=== PATIENT | male | born 1970 | race Caucasian/White ===

== ENCOUNTER 2021-04-22 13:30 | Outpatient (REF) | payer OTHER, SELFPAY | END 2021-04-22 13:31 | disposition home or self-care (01) | LOC: HO.LNP 13:30 | PROVIDERS: Visit Provider Physician Assistant Medical | DX: Z20.822 Contact with and (suspected) exposure to COVID-19 (principal) | CPT/HCPCS: U0003; U0005 ==

== ENCOUNTER 2022-01-01 10:18 | Outpatient (REF) | payer OTHER, SELFPAY ==
[2022-01-01 13:41] LABS: Alanine Aminotransferase 22 U/L (0-40); Albumin Level 4.4 g/dL (3.5-5.0); Alkaline Phosphatase 62 U/L (39-117); Anion Gap 11 (12-20); Aspartate Amino Transferase 24 U/L (5-37); Bilirubin Total 0.3 mg/dL (0.0-1.0); Blood Urea Nitrogen 12 mg/dL (9-16); Calcium 9.9 mg/dL (8.4-10.2); Carbon Dioxide 29 mmol/L (22-29); Chloride 106 mmol/L (96-108); Cholesterol 212 mg/dL; Estimated Glomerular Filt Rate > 60; Glucose Fasting 101 mg/dL (60-99); HDL Cholesterol 75 mg/dL; LDL Cholesterol Calculated 123 mg/dl; Potassium 4.7 mmol/L (3.3-5.1); Sodium 141 mmol/L (135-145); Total Protein 7.5 g/dL (6.5-8.0); Triglycerides 70 mg/dL
[2022-01-01 14:03] LABS: Prostate Specific Antigen Scr 1.06 ng/mL (<0.05-4.0); TSH reflex Free T4 0.95 uIU/mL (0.32-4.0)
[2022-01-01 14:44] LABS: Color Urine YELLOW; Glucose Urine UA NEG (NEG); Leukocyte Esterase Urine NEG (NEG); Nitrite Urine NEG (NEG); PH 5.5 (5.0-8.0); Specific Gravity - Urine >= 1.030 (1.005-1.025); Urine Blood NEG (NEG); Urine Ketones NEG (NEG); Urine Protein NEG (NEG-TRACE)
[2022-01-01 14:46] LABS: Appearance Urine CLOUDY
== END 2022-01-01 10:19 | disposition home or self-care (01) ==
LOC: HO.WFDLDS 10:18
PROVIDERS: Visit Provider Family Medicine
DX: Z00.00 Encounter for general adult medical examination without abnormal findings (principal); Z12.5 Encounter for screening for malignant neoplasm of prostate
CPT/HCPCS: 36415; 80053; 80061; 81003; 84153; 84443

== ENCOUNTER 2022-08-13 16:19 | Outpatient (REF) | payer OTHER, SELFPAY ==
[2022-08-14 12:39] LABS: Influenza A PCR NEGATIVE (Negative); Influenza B PCR NEGATIVE (Negative); Resp Syncy Virus RNA Qual PCR NEGATIVE (Negative); SARS COV2 PCR INHOUSE NEGATIVE (Negative)
== END 2022-08-13 16:20 | disposition home or self-care (01) ==
LOC: HO.LAB 16:19
PROVIDERS: Visit Provider Nurse Practitioner Family
DX: Z20.822 Contact with and (suspected) exposure to COVID-19 (principal); R11.0 Nausea
CPT/HCPCS: 0241U

== ENCOUNTER 2023-03-21 12:50 | Emergency (ER) | payer MEDICAID, SELFPAY ==
--- NOTE | ~2023-03-21 | US_ITS ---
EXAMINATION: US ABDOMEN LIMITED CLINICAL INFORMATION: Right upper quadrant pain.. COMPARISON: None available. TECHNIQUE: Real-time imaging of the right upper quadrant abdominal viscera. FINDINGS: PANCREAS: Visualized head and body the pancreas is homogeneous in echotexture. The tail is obscured by overlying gas LIVER: Normal. The liver is normal in size. The liver contour is normal. Parenchymal echogenicity is normal. No focal hepatic lesion. There is no intrahepatic biliary duct dilatation seen. GALLBLADDER: There is mild tenderness in the right upper quadrant by ultrasound probe. The gallbladder is physiologically distended without evidence of stones, sludge, polyps, wall thickening or pericholecystic fluid. COMMON BILE DUCT: Normal in caliber measuring 0.3 cm in diameter. RIGHT KIDNEY: Normal. No hydronephrosis. No renal calculi or focal parenchymal lesions. The kidney measures 11.4 cm in maximum dimension. FREE FLUID: None. The stomach is slightly prominent. US/US abdomen limited IMPRESSION: Mild tenderness in the right upper quadrant by ultrasound probe but unremarkable gallbladder, liver and right kidney.
--- NOTE | 2023-03-21 13:01 | ED_ITS ---
HPI - General Adult General Chief complaint: Abdominal Pain Stated complaint: food poisoning? Time Seen by Provider: 03/21/23 13:30 Source: patient Mode of arrival: ambulatory History of Present Illness HPI narrative: 53-year-old male who arrives with epigastric/right upper quadrant pain that is constant nature and is been ongoing since 03:00 Wednesday morning with multiple oral episodes of nausea and vomiting in this started to have nonbloody diarrhea. He denies any urinary symptoms/shortness of breath/chest pain/palpitations. Patient also denies any fever chills in states that he drinks some alcohol on with eating a turkey sandwich and thinks that this may be food poisoning. Related Data Home Medications Medication Instructions Recorded Confirmed naproxen sodium 220 mg tablet 220 mg PO Q8H PRN 03/12/22 10/22/22 (Flanax (naproxen)) Previous Rx's Medication Instructions Recorded prednisone 50 mg tablet 50 mg PO DAILY #5 tabs 04/30/22 ondansetron HCl 4 mg tablet 4 mg PO Q6-8H PRN nausea and 03/21/23 vomiting #10 tabs Allergies Allergy/AdvReac Type Severity Reaction Status Date / Time ibuprofen Allergy Unknown Extreme Verified 10/22/22 15:01 nausea Vicodin Allergy Unknown Extreme Uncoded 10/22/22 15:01 nausea Review of Systems Review of Systems: Pertinent positives and negatives as stated in HPI [facility] Past Medical History Source: nursing notes reviewed Medical History Sciatic nerve pain Social History Social History Housing: House Alcohol intake: current Patient Tobacco Use Status: Current everyday Tobacco user Smoked in Last 30 Days: Yes e-Cigarette/Vaping Use: Never Used Second Hand Smoke Exposure: No Use of substances other than those prescribed or required for medical reasons: Yes Substance Use Type: Marijuana Advance Directives: Yes Advance Directives on File: No service: No Current occupational status: employed Current occupational exposures/hazards: No Cognitive needs: No Hearing needs: No Vision needs: No Physical Exam ED Vital Signs: Vital Signs - 24 hr 03/21/23 13:09 03/21/23 14:00 Temperature 97.0 F 98.2 F Pulse Rate 70 51 Respiratory Rate 18 16 Blood Pressure 138/99 H 124/85 Pulse Oximetry 98 100 Oxygen Delivery Method Room Air Room Air BMI result Body Mass Index 25.7 VITAL SIGNS: Reviewed. GENERAL: Well developed, well nourished, in no acute distress. HEAD: Normocephalic/atraumatic EYES: PERRLA, EOMI EARS: Ext canals without abnormality NOSE: Nares patent bilateral OROPHARYNX: no oral lesions noted, posterior pharynx clear NECK: Supple, no adenopathy LUNGS: Normal breath sounds. No adventitious sounds or accessory muscle use. SpO2<100> CARDIOVASCULAR: Regular rate and rhythm without noted murmurs ABDOMEN: Soft, exquisite epigastric pain, non-distended with bowel sounds. MUSCULOSKELETAL: No tenderness, deformities, or effusions noted on gross inspection. EXTREMITIES: No cyanosis, clubbing or edema. SKIN: Inspection of the skin reveals no rashes NEUROLOGIC: Alert and oriented x 4. Strength and sensation to light touch were grossly intact x 4. Course Course Course Narrative: This is an RME: Additional HPI, ROS, PE not included below will be deferred to primary provider. Patient is a 53 year old male presenting with abdominal pain, nausea and vomiting since 3am yesterday after eating turkey lunch meat. He reports eating this lunch meat last night. He reports subjective fevers and chills. Rates pain a 9/10. Has been unable to eat or drink secondary to nausea and vomiting since onset of symptoms. PE- benign Plan- labs Medications Administered Discontinued Medications Generic Name Dose Route Start Last Admin Trade Name Freq PRN Reason Stop Dose Admin Al Hydroxide/Mg Hydroxide 30 ml 03/21/23 15:21 03/21/23 15:40 Magnesium Hydrox/Alum Hydrox 30 Ml Oral.Susp PO 03/21/23 15:22 30 ml ONCE ONE Administration Sodium Chloride 1,000 mls @ 999 mls/hr 03/21/23 13:45 03/21/23 14:59 Ns IV 03/21/23 14:45 Infused .Q1H1M BEATA Infusion Ketorolac Tromethamine 15 mg 03/21/23 14:08 03/21/23 14:20 Ketorolac Tromethamine 30 Mg/Ml Vial IVPUSH 03/21/23 14:09 15 mg ONCE ONE Administration Lidocaine HCl 10 ml 03/21/23 15:21 03/21/23 15:40 Lidocaine Hcl Viscous 2 % 15 Ml Solution MUCOUS MEM 03/21/23 15:22 10 ml ONCE ONE Administration Ondansetron HCl 4 mg 03/21/23 13:01 03/21/23 13:28 Ondansetron Odt 4 Mg Tab.Rapdis TRANSLINGU 03/21/23 13:02 4 mg ONCE ONE Administration Sucralfate 1 gm 03/21/23 15:21 03/21/23 15:40 Sucralfate Oral Suspension 1 Gm/10 Ml Oral.Susp PO 03/21/23 15:22 1 gm ONCE ONE Administration Medical Decision Making Medical Decision Making MDM Narrative: 53-year-old male with history and clinical presentation suggestive of possible pancreatitis, gastritis, and certainly a component of dehydration. - labs, UA, Lipase, IVF, Zofran On review of all investigations patient has a stress leukocytosis in suspect a combination poisoning/dehydration. He has been rehydrated, right upper quadrant ultrasound is negative for evidence cholecystitis, no further evidence to suggest pancreatitis. Patient is otherwise discharged home in stable condition instructions to continue with antinausea medications and a bland diet. Differential Diagnosis Please see the discussion above Lab Data Please see the discussion above 03/21/23 13:40 03/21/23 13:40 Labs: Lab Results 03/21/23 03/21/23 03/21/23 Range/Units 13:40 13:40 13:40 WBC 12.8 H (4.8-10.8) X10*3/uL RBC 5.58 (4.60-5.80) X10*6/uL Hgb 16.8 (14.0-18.0) g/dl Hct 50.4 (42.0-52.0) % MCV 90.3 (80.0-98.0) fL MCH 30.1 (27.0-33.0) pg MCHC 33.3 (31.0-36.0) g/dl RDW 12.5 (11.0-16.0) % Plt Count 293 (160-400) X10*3/uL MPV 9.3 L (9.4-12.4) fL Immature Gran % (Auto) 0.3 (0.0-0.4) % Neut % (Auto) 73.5 H (45-73) % Lymph % (Auto) 13.6 L (20-40) % [place]ton % (Auto) 9.2 (2-11) % Eos % (Auto) 3.0 (0-4) % Baso % (Auto) 0.4 (0-2) % Lymph # (Auto) 1.7 (1.2-4.9) X10*3/uL [place]ton # (Auto) 1.2 (0.1-1.2) X10*3/uL Eos # (Auto) 0.4 (0.0-0.4) X10*3/uL Baso # (Auto) 0.1 (0.0-0.2) X10*3/uL Abs Immat Gran (auto) 0.04 H (0.00-0.03) X10*3/uL Absolute Neuts (auto) 9.4 H (2.0-8.3) x10*3/uL Absolute Nucleated RBC 0.000 (0.0-0.012) X10*3/uL Nucleated RBC % (auto) 0.0 (0.0-0.2) /100WBC Sodium 137 (135-145) mmol/L Potassium 4.6 (3.3-5.1) mmol/L Chloride 99 (96-108) mmol/L Carbon Dioxide 30 H (22-29) mmol/L Anion Gap 13 (12-20) BUN 13 (9-16) mg/dL Creatinine 0.88 (0.5-1.4) mg/dL Estim Creat Clear Calc 115.4 Estimated GFR > 60 Random Glucose 104 (60-115) mg/dL Calcium 11.1 H D (8.4-10.2) mg/dL Magnesium 2.2 (1.6-2.6) mg/dL Total Bilirubin 1.0 (0.0-1.0) mg/dL AST 27 (5-37) U/L ALT 28 (0-40) U/L Alkaline Phosphatase 74 (39-117) U/L Total Protein 7.7 (6.5-8.0) g/dL Albumin 4.5 (3.5-5.0) g/dL Lipase 20 (8-78) U/L Urine Color Dark Yellow Urine Appearance Clear Urine pH 5.5 (5.0-9.0) Ur Specific [place] 1.025 (1.005-1.025) Urine Protein Trace (Neg-Trace) mg/dL Urine Glucose (UA) Negative (Negative) mg/dL Urine Ketones 15 (Negative) mg/dL Urine Blood Negative (Negative) Urine Nitrite Negative (Negative) Ur Leukocyte Esterase Negative (Negative) Independent Interpretation I performed an independent interpretation of an: EKG Radiology Impression Radiologist Impression: My interpretation is in agreement with radiology's impression Discharge Plan Discharge Clinical Impression: Food poisoning, Dehydration, Gastritis Patient Disposition: Home, Self-Care Instructions: Gastritis (ED), Dehydration (ED), Diet for Stomach Ulcers and Gastritis (ED), Food Poisoning (ED), Nutrition Tips for Relief of Diarrhea (ED) Additional Instructions: 1. I recommend that you avoid all NSAIDs (naproxen, Motrin, ibuprofen, Aleve, aspirin, Excedrin). 2. Recommend that you take Mylanta, 3 times a day and stick to a bland diet and drink plenty of water over the next 24-48 hours. Return to the ER for any worsening symptoms. Prescriptions: New ondansetron HCl 4 mg tablet 4 mg PO Q6-8H PRN (Reason: nausea and vomiting) Qty: 10 0RF No Action prednisone 50 mg tablet 50 mg PO DAILY Qty: 5 0RF naproxen sodium [Flanax (naproxen)] 220 mg tablet 220 mg PO Q8H PRN Referrals: Nicholas Gann MD [Primary Care Provider] -
[2023-03-21 13:09] VITALS: BP 138/99; PULSE 70; RESP 18; TEMP 36.1; O2SAT 98; BMI 25.7
[2023-03-21] MEDS: Ondansetron ODT 4 MG TAB.RAPDIS TRANSLINGU (13:28)
[2023-03-21] MEDS: 0.9 % Sodium Chloride 1,000 ML 999 ML IV (13:42)
[2023-03-21 13:55] LABS: MANUAL DIFF FLAG NO
[2023-03-21 13:56] LABS: Appearance Urine Clear; Basophils Absolute Auto 0.1 X10*3/uL (0.0-0.2); Basophils Percent Auto 0.4 % (0-2); Color Urine Dark Yellow; Eosinophils Absolute Auto 0.4 X10*3/uL (0.0-0.4); Glucose Urine UA Negative (Negative); Hematocrit 50.4 % (42.0-52.0); Hemoglobin 16.8 g/dl (14.0-18.0); Imm Gran Abs Auto 0.04 X10*3/uL (0.00-0.03); Imm Gran Pct Auto 0.3 % (0.0-0.4); Leukocyte Esterase Urine Negative (Negative); Lymphocytes Absolute Auto 1.7 X10*3/uL (1.2-4.9); Lymphocytes Percent Auto 13.6 % (20-40); Mean Corpuscular HGB Conc 33.3 g/dl (31.0-36.0); Mean Corpuscular Hemoglobin 30.1 pg (27.0-33.0); Mean Corpuscular Volume 90.3 fL (80.0-98.0); Mean Platelet Volume 9.3 fL (9.4-12.4); Monocytes Absolute Auto 1.2 X10*3/uL (0.1-1.2); Monocytes Percent Auto 9.2 % (2-11); Neutrophils Absolute Auto 9.4 x10*3/uL (2.0-8.3); Neutrophils Percent Auto 73.5 % (45-73); Nitrite Urine Negative (Negative); PH 5.5 (5.0-9.0); Platelet Count 293 X10*3/uL (160-400); Red Blood Count 5.58 X10*6/uL (4.60-5.80); Red Cell Distribution Width 12.5 % (11.0-16.0); Specific Gravity - Urine 1.025 (1.005-1.025); Urine Blood Negative (Negative); Urine Ketones 15 mg/dL (Negative); Urine Protein Trace mg/dL (Neg-Trace); White Blood Count 12.8 X10*3/uL (4.8-10.8)
[2023-03-21 14:00] VITALS: BP 124/85; PULSE 51; RESP 16; TEMP 36.8; O2SAT 100
[2023-03-21 14:10] LABS: Alanine Aminotransferase 28 U/L (0-40); Albumin Level 4.5 g/dL (3.5-5.0); Alkaline Phosphatase 74 U/L (39-117); Anion Gap 13 (12-20); Aspartate Amino Transferase 27 U/L (5-37); Blood Urea Nitrogen 13 mg/dL (9-16); Calcium 11.1 mg/dL (8.4-10.2); Carbon Dioxide 30 mmol/L (22-29); Chloride 99 mmol/L (96-108); Creatinine Clr Calc Pharmacy 115.4; Estimated Glomerular Filt Rate > 60; Glucose Random 104 mg/dL (60-115); Magnesium 2.2 mg/dL (1.6-2.6); Potassium 4.6 mmol/L (3.3-5.1); Sodium 137 mmol/L (135-145); Total Protein 7.7 g/dL (6.5-8.0)
[2023-03-21] MEDS: Ketorolac Tromethamine 30 MG/ML VIAL 15 MG IVPUSH (14:20)
[2023-03-21 14:36] LABS: Lipase 20 U/L (8-78)
[2023-03-21] MEDS: Lidocaine HCl Viscous 2 % 15 ML SOLUTION 10 ML MUCOUS MEM (15:40)
[2023-03-21] MEDS: Magnesium Hydrox/Alum Hydrox 30 ML ORAL.SUSP PO (15:40)
[2023-03-21] MEDS: Sucralfate Oral Suspension 1 GM/10 ML ORAL.SUSP PO (15:40)
--- NOTE | 2023-03-21 15:56 | PC.NURSE ---
per pt torodol did not help pain. abd pain hovers around a 7/10 but he has intermittent spasms of pain /10. GI cocktail given per DEC. US done. will ctm
== END 2023-03-21 17:03 | disposition home or self-care (01) ==
PROVIDERS: Physician Assistant; Emergency Provider Student in an Organized Health Care Education/Training Program; PCP Family Medicine
DX: A05.9 Bacterial foodborne intoxication, unspecified (principal); E86.0 Dehydration; K29.70 Gastritis, unspecified, without bleeding; F12.90 Cannabis use, unspecified, uncomplicated; F17.200 Nicotine dependence, unspecified, uncomplicated
CPT/HCPCS: 36415; 76705; 80053; 81003; 83690; 83735; 85025; 96361; 96374; 99284; 99285; J1885

== ENCOUNTER 2024-04-10 11:48 | Outpatient (AMB) | payer BC, SELFPAY ==
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
[2024-04-10 12:05] VITALS: BP 96/70; PULSE 67; RESP 12; TEMP 36.9; O2SAT 97; BMI 27.0
== END 2024-04-10 12:46 | disposition home or self-care (01) ==
PROVIDERS: PCP Family Medicine; Visit Provider Nurse Practitioner Family
DX: M25.562 Pain in left knee (principal); R68.84 Jaw pain
CPT/HCPCS: 99215

== ENCOUNTER 2024-04-27 11:13 | Outpatient (REF) | payer BC, SELFPAY ==
--- NOTE | ~2024-04-27 | XR_ITS ---
EXAMINATION: XR KNEE, LEFT CLINICAL INFORMATION: Left knee pain. COMPARISON: None available. TECHNIQUE: Four views of the left knee. FINDINGS: Mild soft tissue swelling and subcutaneous edema anteriorly. No fracture or malalignment. Joint spaces are normal. No joint effusion. Small bone islands are present in the distal femur and proximal tibia. XR/XR knee LT 4V IMPRESSION: No acute osseous findings or significant degenerative arthritis.
== END 2024-04-27 11:14 | disposition home or self-care (01) ==
LOC: HO.XRAY 11:13
PROVIDERS: PCP Family Medicine; Visit Provider Nurse Practitioner Family
DX: M25.562 Pain in left knee (principal); R68.84 Jaw pain
CPT/HCPCS: 73564

== ENCOUNTER 2024-05-03 14:54 | Outpatient (AMB) | payer BC, SELFPAY ==
--- NOTE | 2024-05-03 14:55 | MHC.OFFWIV ---
Intake Vital Signs 05/03/24 14:56 Height 6 ft Weight 199 lb BMI 27.0 BP 118/80 Blood Pressure Location Rt brachial Position Sitting Pulse 81 Pulse Source Pulse Oximeter Temp 98.3 F Temp Source Oral Pulse Oximetry (%) 98 Oxygen Delivery Method Room Air Intake Visit Reasons: poison cherry Intake Note: pt c/o poison cherry rash Patient Tobacco Use Status: Current everyday Tobacco user Allergies ibuprofen Allergy (Unknown, Verified 05/03/24 14:56) Extreme nausea Vicodin Allergy (Unknown, Uncoded 05/03/24 14:56) Extreme nausea Do you need a note to return to daycare/school/sports/work: No HPI HPI Comments History of Present Illness Details Patient is a 54yo M who presents to office with poison cherry Ongoing x 2 days Works at [employer] and has exposure Has had poison cherry in past Using OTC cream with relief of itching + itchy No pain, 0/10 No sob, CP, throat tightness Denies fever or chills No other complaints PFSH Medical History Sciatic nerve pain Social History Housing: House Alcohol intake: current Patient Tobacco Use Status: Current everyday Tobacco user e-Cigarette/Vaping Use: Never Used Second Hand Smoke Exposure: No Substance Use Type: Marijuana service: No Current occupational status: employed Current occupational exposures/hazards: No Cognitive needs: No Hearing needs: No Vision needs: No Review of Systems Const Denies chills and Denies fever(s) ENT Denies sore throat and Denies throat swelling Card Denies dyspnea Resp Denies cough and Denies dyspnea Skin/Breast Reports pruritus and Reports rash Aller/Immun Denies throat swelling Physical Exam Vital Signs: Last Vital Signs Temp 98.3 F 05/03/24 14:56 Pulse 81 05/03/24 14:56 BP 118/80 05/03/24 14:56 Pulse Ox 98 05/03/24 14:56 Oxygen Delivery Method Room Air 05/03/24 14:56 BMI result Body Mass Index 27.0 General: Non-toxic, NAD. Speaking full sentences. Skin: Warm dry throughout. + linear erythmatous vesicular lesions around bilateral wrists spreading proximally up forearm. No active discharge. + slight crusting Eye: EOMI HENT: Airway patent. Uvula midline. No pharyngeal erythema or edema. No FLOW MATCH SOFA CUTTER. Respiratory: No respiratory distress Cardiac: RRR. No murmur MSK: Full ROM extremities. Neurology: A/O. No aphasia or facial droop. Gait without abnormality Psych: Good mood and affect Assessment & Plan Assessment & Plan (1) Contact dermatitis: Code(s): L25.9 - Unspecified contact dermatitis, unspecified cause Qualifiers: Contact dermatitis type: allergic Contact dermatitis trigger: other trigger Qualified Code(s): L23.89 - Allergic contact dermatitis due to other agents Plan: Patient seen and evaluated. + poison cherry on exam Discussed with pt and he said he does not tolerate prednisone well In past had reaolution with Prednisone 50 x 5 and 40 x 4 days Will give small taper but not traditional 12 day course Patient gave verbal understanding and had no additional questions or concerns at time of discharge All questions answered Medications: New prednisone Take 60mg po qd x 2 days, then 40mg po qd x 3 days, then 20mg po qd x 3 days 20 mg PO DAILY 15 tabs 0RF Coding Level of Care Code Est Pt Level 3 (89976) Diagnoses Allergic contact dermatitis due to other agents L23.89 Contact dermatitis type: allergic Contact dermatitis trigger: other trigger
[2024-05-03 14:56] VITALS: BP 118/80; PULSE 81; TEMP 36.8; O2SAT 98; BMI 27.0
== END 2024-05-03 15:28 | disposition home or self-care (01) ==
PROVIDERS: PCP Family Medicine; Visit Provider Physician Assistant
DX: L23.89 Allergic contact dermatitis due to other agents (principal)
CPT/HCPCS: 99213

== ENCOUNTER 2024-05-12 09:51 | Outpatient (AMB) | payer BC, SELFPAY ==
--- NOTE | 2024-05-12 09:55 | MHC.OFFVIS ---
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 He states that he twisted his knee the wrong way. No hx of previous treatment. Patient reports ongoing pain for about 8-9 months. He mentions that his pain is on the whole knee. Pain is worse when bending and walking. Patient tried and failed 3 + months of at home excises, NSIADs/Tylenol. 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 The patient was seen at the [facility] on 04/10/24 when he stated the pain began about three months prior and had resolved on its own. He states the pain returned on 04/06/24 after he was ambulating on an unstable dock. X-rays of the left knee were obtained. ? ? While in the office today, the patient reports he twisted his left knee the wrong way. He states the pain has been ongoing for eight to nine months. He claims the pain is throughout the entire knee and his pain increases with bending and ambulating. He confirms attempting home exercises and the use of NSAIDs and Tylenol for more than three months with no relief. He denies any prior formal treatments.? [facility] Medical History Sciatic nerve pain Social History (Updated 05/12/24 @ 10:01 by Ashley Padron) Housing: House Alcohol intake: current Patient Tobacco Use Status: Current everyday Tobacco user e-Cigarette/Vaping Use: Never Used Second Hand Smoke Exposure: No Substance Use Type: Marijuana service: No Current occupational status: employed Current occupation: [employer] Current occupational exposures/hazards: No Cognitive needs: No Hearing needs: No Vision needs: No Review of Systems Const All systems reviewed & are unremarkable except as noted in HPI and below Physical Exam Vital Signs: BMI result Body Mass Index 27.0 Const General: cooperative and no acute distress Orientation/consciousness: patient oriented x3 Resp Effort & Inspection: normal respiratory effort and able to speak in complete sentences Cardio Peripheral pulses: Peripheral pulses 2+ throughout Skin General skin exam: no rashes or lesions noted Neuro General: patient oriented x3 Extrem Other: Left knee: Normal to inspection. No ecchymosis, erythema, or joint effusion. No tenderness to palpation along the medial or lateral joint lines. Full knee extension and flexion. Negative Yaakov's. Slight laxity with anterior drawer. NVI.?? Assessment & Plan Assessment & Plan (1) Patellofemoral arthralgia of left knee: Code(s): M25.562 - Pain in left knee Category: Medical (2) Left knee pain: Code(s): M25.562 - Pain in left knee Category: Medical Qualifiers: Chronicity: acute Qualified Code(s): M25.562 - Pain in left knee Plan Mr. Baeza is a 54-year-old male who presents in the office today, as a new patient, for an evaluation of left knee pain. The patient was seen at the [facility] clinic on 04/10/24 when he stated the pain began about three months prior and had resolved on its own. He states the pain returned on 04/06/24 after he was ambulating on an unstable dock. X-rays of the left knee were obtained. ? ? While in the office today, the patient reports he twisted his left knee the wrong way. He states the pain has been ongoing for eight to nine months. He claims the pain is throughout the entire knee and his pain increases with bending and ambulating. He confirms attempting home exercises and the use of NSAIDs and Tylenol for more than three months with no relief. He denies any prior formal treatments.? ? The patient will be referred for an MRI to further evaluate the integrity of the surrounding structures of the left knee. His main complaint is squatting or putting excess pressure on the front of the left knee. We discussed the role of PT and its effect on the approval for the MRI. If the?MRI is denied he nesha have to complete a full course of formal physical therapy. Follow-up will be after the MRI is obtained, or sooner if needed. ? ? X-rays of the left knee which were obtained while in the office today and were reviewed by me, Fabby Ribera PA-C, revealed no acute fractures or dislocation.? ? X-rays of the left knee, obtained on 04/27/24, revealed: No acute osseous findings or significant degenerative arthritis.? Orders: Orders MR knee LT wo con Today M25.562 - Pain in left knee XR knee standing BI Today M25.562 - Pain in left knee Patient Instructions: Scribed by Keri Waldrop medical reimbursement manager, for Fabby Ribera PA-C on 05/12/2024 at 9:55 am, EST.? Coding Level of Care Code New Pt Level 4 (52702) Diagnoses Patellofemoral arthralgia of left knee M25.562 Acute pain of left knee M25.562 Chronicity: acute
[2024-05-12 09:56] VITALS: BMI 27.0
== END 2024-05-12 10:29 | disposition home or self-care (01) ==
PROVIDERS: PCP Family Medicine; Referring Provider Family Medicine; Visit Provider Physician Assistant
DX: M25.562 Pain in left knee (principal)
CPT/HCPCS: 99204

== ENCOUNTER 2024-05-12 10:47 | Outpatient (REF) | payer BC, SELFPAY ==
--- NOTE | ~2024-05-12 | XR_ITS ---
EXAMINATION: XR KNEE AP STANDING CLINICAL INFORMATION: Left knee pain. COMPARISON: None available. TECHNIQUE: AP bilateral standing view of the knees was obtained. FINDINGS: No fracture or joint effusion. Alignment is anatomic. Joint spaces are maintained. No abnormal soft tissue calcification. XR/XR knee standing BI IMPRESSION: Unremarkable examination. Electronically signed by: Priyank Varghese MD 06/20/2024 08:46 AM EDT
== END 2024-05-12 10:48 | disposition home or self-care (01) ==
LOC: HO.HOSX 10:47
PROVIDERS: Visit Provider Physician Assistant
DX: M25.562 Pain in left knee (principal)
CPT/HCPCS: 73565

== ENCOUNTER 2024-06-18 08:20 | Outpatient (REF) | payer BC, SELFPAY ==
--- NOTE | ~2024-06-18 | MR_ITS ---
EXAMINATION: MR KNEE WITHOUT CONTRAST, LEFT CLINICAL INFORMATION: Left knee pain and stiffness. Fall 4-5 months ago. COMPARISON: Left knee radiographs dated 04/27/2024 and 05/12/2024. TECHNIQUE: MRI of the knee without contrast was performed using routine sequences on a high-field scanner. FINDINGS: MENISCI: Medial Meniscus: Heterogeneously increased T2 signal with somewhat linear longitudinal component at the posterior root insertion, which could represent normal variation versus irregular fraying. The medial meniscus is otherwise intact. Lateral Meniscus: Intact. LIGAMENTS: Cruciate: Mildly increased T2 signal throughout the anterior cruciate ligament which could represent a grade 1 sprain versus early mucoid degeneration. No measurable tear. Intact posterior cruciate ligament. Collateral: Minimal edema along the periphery of the medial collateral ligament consistent with a grade 1 sprain/partial tear. Intact fibular collateral ligament. EXTENSOR MECHANISM: Intact quadriceps tendon. Minimal proximal patellar tendinosis. Normal patellofemoral alignment. ARTICULAR CARTILAGE/BONE: Patellofemoral Compartment: Patellar median ridge articular cartilage signal heterogeneity and partial thickness fissuring. Medial Compartment: Intact articular cartilage. Lateral Compartment: Intact articular cartilage. JOINT FLUID AND BURSAE: Small joint effusion and small Hendricks's cyst. MR/MR knee LT wo con IMPRESSION: 1. Heterogeneous increased T2 signal with somewhat linear longitudinal component at the medial meniscus posterior root insertion, which could represent normal variation versus irregular fraying. 2. Possible grade 1 sprain versus early mucoid degeneration of the anterior cruciate ligament. 3. Grade 1 sprain/partial tear of the medial collateral ligament. 4. Minimal patellofemoral arthrosis. Small joint effusion and small Hendricks's cyst. Electronically signed by: Priyank Varghese MD 06/20/2024 09:38 AM EDT
== END 2024-06-18 08:21 | disposition home or self-care (01) ==
LOC: HO.MRI 08:20
PROVIDERS: PCP Family Medicine; Visit Provider Physician Assistant
DX: M25.562 Pain in left knee (principal)
CPT/HCPCS: 73721

== ENCOUNTER 2024-07-14 10:26 | Outpatient (AMB) | payer BC, SELFPAY ==
[2024-07-14 10:27] VITALS: BMI 27.0
--- NOTE | 2024-07-14 10:27 | A.OFFVIS_ITS ---
Vital Signs 07/14/24 10:27 Height 6 ft Weight 199 lb BMI 27.0 Intake Visit Reasons: OV-Left Knee MRI review-Discuss surgery? Intake Note: Justin is a 54 year old male who presents today for an MRI review of his left knee. Patient was last seen with Fabby where he reported that he twisted the knee & has tried and failed OTC NSAIDs, Tylenol and at least 3 months of home exercise program. MR/MR knee LT wo con IMPRESSION: 1. Heterogeneous increased T2 signal with somewhat linear longitudinal component at the medial meniscus posterior root insertion, which could represent normal variation versus irregular fraying. 2. Possible grade 1 sprain versus early mucoid degeneration of the anterior cruciate ligament. 3. Grade 1 sprain/partial tear of the medial collateral ligament. 4. Minimal patellofemoral arthrosis. Small joint effusion and small Hendricks's cys Allergies ibuprofen Allergy (Unknown, Verified 05/12/24 10:02) Extreme nausea Vicodin Allergy (Unknown, Uncoded 05/03/24 14:56) Extreme nausea HPI HPI OV-Left Knee MRI review-Discuss surgery?: Details: Justin is a 54 year old male who presents today for an MRI review of his left knee. Patient was last seen with Fabby where he reported that he twisted the knee & has tried and failed OTC NSAIDs, Tylenol and at least 3 months of home exercise program. Patient states he has stiffness and pain. There is no PT scheduled at this time. He states that he can walk unlimited distances without a problem but when he sits for 10-15 minutes he then has pain when he tries to stand I and his kneecap. He denies locking or mechanical symptoms. He describes the pain as anterior and retropatellar. He has not done physical therapy or had injections. [facility] Medical History Sciatic nerve pain Social History (Updated 05/12/24 @ 10:01 by Ashley Padron) Housing: House Alcohol intake: current Patient Tobacco Use Status: Current everyday Tobacco user e-Cigarette/Vaping Use: Never Used Second Hand Smoke Exposure: No Substance Use Type: Marijuana service: No Current occupational status: employed Current occupation: [employer] Current occupational exposures/hazards: No Cognitive needs: No Hearing needs: No Vision needs: No Physical Exam Vital Signs: BMI result Body Mass Index 27.0 Extrem Other: Full range of motion left knee with mild discomfort on terminal flexion and negative Yaakov's. No joint line tenderness. Trace effusion. No retropatellar tenderness to palpation. Normal tracking. Stable ligamentous exam. Results Reviewed Results Reviewed: I personally reviewed the MR images. MR/MR knee LT wo con IMPRESSION: 1. Heterogeneous increased T2 signal with somewhat linear longitudinal component at the medial meniscus posterior root insertion, which could represent normal variation versus irregular fraying. 2. Possible grade 1 sprain versus early mucoid degeneration of the anterior cruciate ligament. 3. Grade 1 sprain/partial tear of the medial collateral ligament. 4. Minimal patellofemoral arthrosis. Small joint effusion and small Hendricks's cys Assessment & Plan Assessment & Plan (1) Patellofemoral arthralgia of left knee: Code(s): M25.562 - Pain in left knee Category: Medical Plan: This is a 4-year-old gentleman who sustained a twisting injury approximately 9 months ago. His MRI is unimpressive. His symptoms are consistent with patellofemoral pain and he would like to try physical therapy. I do not, at this time, think surgery would help him. Is ambulatory capacity is full. Orders: Orders PT Evaluation and Treatment Today M25.562 - Pain in left knee Coding Level of Care Code Est Pt Level 3 (10045) Diagnoses Patellofemoral arthralgia of left knee M25.562
== END 2024-07-14 10:52 | disposition home or self-care (01) ==
PROVIDERS: PCP Family Medicine; Visit Provider Orthopaedic Surgery
DX: M25.562 Pain in left knee (principal)
CPT/HCPCS: 99213

== ENCOUNTER → 2024-07-14 10:26 | Outpatient (BNVA) | payer BC, SELFPAY | PROVIDERS: PCP Family Medicine; Visit Provider Orthopaedic Surgery ==

== ENCOUNTER 2024-08-23 08:07 | Outpatient (RCR) | payer BC, SELFPAY ==
--- NOTE | 2024-08-02 10:01 | MHC.PT.EP ---
[facility] [place] Office [place] Office [place] Office [address] [phone] F: [phone] F: [phone] F: [phone] F: [phone] Physical Therapy Plan of Care Date of Evaluation: 08/02/24 Date of Surgery: Diagnosis: Pain in L knee Assessment: 54 y/o male referred to PT with L knee pain. He slipped and fell landing on L knee 5 months ago resulting in pain and difficulty with squatting, stairs, and first few steps of walking after prolonged sitting. Examination shows normal ROM, pain with squatting, decreased L hip/knee strength, mild L patella hypomobility and pain. REcommend PT 2x/week for 5 weeks to address impairments, implement HEP, and optimize functional mobility. Frequency and Duration: The patient will be seen 2x/week for 5 weeks Short Term Goals: I with HEP Aviation Safety Equipment Technician Goals: 5 weeks I with HEP and self management of sx Pt will be able to squat to sweet pickled fruit maker object from floor with pain < 3/10 Improve LEFS to 49/80 *IR (39/80) Treatment Plan: Modalities to reduce pain, spasms and effusion. Manual therapy to restore motion and function. Therapeutic exercise to improve strength and flexibility. Neuromuscular re-education for posture and balance. Therapeutic activities to return to functional activities of daily living. Electronically signed by: Lacey Hazel PT Please sign and return to therapist. Thank you for your referral.
--- NOTE | 2024-09-21 08:57 | MHC.PT.DC ---
[facility] [place] Office [place] Office [place] Office [address] [phone] F: [phone] F: [phone] F: [phone] F: [phone] Physical Therapy Discharge Report Diagnosis: Pain in L knee Date of Surgery: Date of Evaluation: 08/02/24 Date of Discharge: 09/21/24 Treatments to Date: 4 Cancellations to Date: 3 No Shows to Date: 0 Discharge Status: Independent with HEP Recommend MD Follow-up Discharge Summary: Pt did not f/u final visits, however I with HEP at time of last visit. Pt also with some jerky motion during mat exercises and pt states his legs have been like that for 8-9 years now, unsure why. Recommended he look into f/u with his MD regarding his report of poor balance and tremulous motion that is observed, he will consider. Electronically signed by: Lacey Hazel PT Please sign and return to therapist. Thank you for your referral.
== END 2024-09-21 08:58 | disposition home or self-care (01) ==
LOC: HO.PT 08:07
PROVIDERS: PCP Family Medicine; Visit Provider Family Medicine
DX: M25.562 Pain in left knee (principal)
CPT/HCPCS: 97110; 97161

== ENCOUNTER 2025-07-05 11:17 | Outpatient (AMB) | payer OTHER, SELFPAY ==
--- OUTSIDE RECORDS SUMMARY | 2022-10-09 16:55 | XMS_ITS | Encounter Summary ---
Author Organization [facility] Address [address] [place] [phone] Phone Care Team Providers Care Assistant Gm Of Content & Delivery Name Role Phone Nicholas Gann MD Primary Care Provider Encounter Details Date Type Department Care Team (Late st Contact Info) Description 10/09/2022 3:55 PM EST Hospital Encounter [facility] [address] [place] [phone] Zandra Bruno FNP [address] [place] [phone] [email or web address] Social History Tobacco Use Types Packs/Day Years Used Date Smoking Tobacco: Every Day Cigarettes Smokeless Tobacco: Never Education Answer Date Recorded Are you interested in more education? Not on delvin e 01/30/2023 Are you concerned about learning? Not on file 01/30/2023 No 01/30/2023 No 01/30/2023 Digital Access Answer Date Recorded No 03/02/2023 No 03/02/2023 Reliable internet access at home? Not on file 03/02/2023 Device with a working camera? Not on file Sex and Gender Information Value Date Recorded Sex Assigned at Not on file Legal Sex Male 3:22 PM EST Gender Identity Not on file Sexual Orientation Not on file documented as of this encounter Plan of Treatment Not on file documented as of this encounter Procedures Procedure Name Priority Date/Time Associated Diagnosis Comments XR LUMBOSACRAL SPINE 4 OR MORE VIEWS Urgent/patient waiting 10/09/2022 4:01 PM EST Fall, initial encounter documented in this encounter Results * XR LUMBOSACRAL SPINE 4 OR MORE VIEWS (10/09/2022 4:01 PM EST) Anatomical Region Laterality Modality L-spine Computed Radiogr aphy 10/09/2022 4:29 PM EST Impressions 10/09/2022 4:29 PM EST No displaced fracture. Narrative 10/09/2022 4:29 PM EST XR LUMBOSACRAL SPINE 4 OR MORE VIEWS COMPARISON: None. FINDINGS: 5 nonrib-bearing lumbar-type vertebral bodies. Preserved alignment. Small anterior osteophytes at multiple levels. Mild disc space narrowing at L1-L2 and L4-L5. Intact sacroiliac joints. Surgical clips in the right upper quadrant. Procedure Note Jasmin Salamanca MD - 10/09/2022 XR LUMBOSACRAL SPINE 4 OR MORE VIEWS COMPARISON: None. FINDINGS: 5 nonrib-bearing lumbar-type vertebral bodies. Preserved alignment. Smallanterior osteophytes at multiple levels. Mild disc space narrowing atL1-L2 and L4-L5. Intact sacroiliac joints. Surgical clips in the rightupper quadrant. IMPRESSION: No displaced fracture. Zandra Bruno TOOTH CUTTER SPUR IMG XR SPINE Final Resul t documented in this encounter Visit Diagnoses Not on filedocumented in this encounter Care Teams Assistant Gm Of Content & Delivery Relationship Specialty Start Date End Date Nicholas Gann MD [address] [place] [address] PCP - General Family Medicine 10/09/22 documented as of this encounter Additional Source Comments The information contained in this document represents components of the legal health record. It is not the complete legal health record.[facility]
[2025-07-05 11:19] VITALS: BP 100/72; PULSE 62; TEMP 36.6; O2SAT 97; BMI 26.7
--- NOTE | 2025-07-05 11:19 | MHC.OFFWIV ---
Intake Vital Signs 07/05/25 11:19 Height 6 ft Weight 197 lb BMI 26.7 BP 100/72 Blood Pressure Location Rt brachial Position Sitting Pulse 62 Pulse Source Pulse Oximeter Temp 97.9 F Temp Source Oral Pulse Oximetry (%) 97 Oxygen Delivery Method Room Air Intake Visit Reasons: EP Poison Janet Patient Tobacco Use Status: Current everyday Tobacco user Allergies ibuprofen Allergy (Unknown, Verified 07/05/25 11:23) Extreme nausea acetaminophen (From Vicodin) Adverse Reaction (Mild, Verified 07/05/25 11:23) nausea hydrocodone (From Vicodin) Adverse Reaction (Mild, Verified 07/05/25 11:23) nausea Do you need a note to return to daycare/school/sports/work: Yes HPI HPI Comments History of Present Illness Details History - The patient is a 55-year-old male presenting with a rash on his arms and hands. - Symptoms began after yard work on Wednesday, despite preventive measures with Dove soap. - Rash is itchy and burning, located between fingers, back of neck, and leg. - History of similar reactions to poison janet in the past and had prednisone to help with his symptoms. - He tried some OTC treatments that did not help. - He denies joint pain, fever, chills, SOB, or wheezing. Physical Exam General: Cooperative, healthy appearing, comfortable, no acute distress and well developed Orientation: Patient oriented x3 Limitations: No limitations Mouth: normal, moist oral mucosa Neck: Normal visual inspection and Yes full ROM Respiratory: Normal respiratory effort and able to speak in complete sentences. Clear to auscultation bilaterally. No w/r/r noted. Cardiovascular: RRR, no m/r/g noted. Normal S1 and S2 Skin: Erythematous raised, blanchable, non-tender patches noted in the antecubital fossas, forearms, and hands. No burrows noted. No discharge noted. No streaking noted. Patient was informed and verbally consented to the use of an ambient scribe for clinic note documentation during this visit [facility] Medical History Sciatic nerve pain Social History (Updated 05/12/24 @ 10:01 by Ashley Padron) Housing: House Alcohol intake: current Patient Tobacco Use Status: Current everyday Tobacco user e-Cigarette/Vaping Use: Never Used Second Hand Smoke Exposure: No Substance Use Type: Marijuana service: No Current occupational status: employed Current occupation: [employer] Current occupational exposures/hazards: No Cognitive needs: No Hearing needs: No Vision needs: No Review of Systems Const All systems reviewed & are unremarkable except as noted in HPI and below Physical Exam Vital Signs: Last Vital Signs Temp 97.9 F 07/05/25 11:19 Pulse 62 07/05/25 11:19 BP 100/72 07/05/25 11:19 Pulse Ox 97 07/05/25 11:19 Oxygen Delivery Method Room Air 07/05/25 11:19 BMI result Body Mass Index 26.7 Assessment & Plan Assessment & Plan (1) Rash: Code(s): R21 - Rash and other nonspecific skin eruption Plan Most likely poison janet vs poison sumac or contact dermatitis of another plant Plan - Prescribe prednisone 40 mg daily for five days to manage inflammation and symptoms. - Recommend hydrocortisone cream to apply topically to affected areas to reduce rash and itching. - Advise the use of antihistamines such as Benadryl or Zyrtec to alleviate itching. Medications: New hydrocortisone 2.5% 1 appl topical BID PRN 30 grams 0RF Skin Irritation prednisone 40 mg (2 x 20 mg) PO DAILY 10 tabs 0RF 5 days Coding Level of Care Code Est Pt Level 3 (95915) Diagnoses Rash R21
--- OUTSIDE RECORDS SUMMARY | 2025-07-05 13:11 | XMS_ITS | Clinical Summary ---
Author Organization [facility] Address [address] [place] [address] Care Team Providers Care Tariff Counsel Name Role Phone Bhavik Garcia MD Primary Care Provider [phone] Immunizations Immunization Administration Dates Next Due Influenza Inactivated/Split Preservative Free IM 08/04/2022 Social History Tobacco Use Types Packs/Day Years Used Date Smoking Tobacco: Never Assessed Sex and Gender Information Value Date Recorded Sex Assigned at Not on file Legal Sex Male 2:42 PM EDT Gender Identity Not on file Sexual Orientation Not on file Plan of Treatment Health Maintenance Due Date Last Done Comments Hepatitis C Virus Screening 1970 HIV Screening 01/19/1985 DTaP/Tdap/Td Vaccines (1 - Tdap) 01/19/1991 Hepatitis B Vaccines (1 of 3 - 19+ 3-dose series) 01/19/1991 Colonoscopy 01/19/2017 Pneumococcal Vaccines 50+ (1 of 1 - PCV) 01/19/2022 Zoster (Shingles) Vaccine (1 of 2) 01/19/2022 Influenza Vaccine 05/04/2025 08/04/2022 COVID-19 Vaccine (3 - 2024- season) 06/04/202512/2021, 11/05/2021 Insurance [employer] PPO Care Teams Tariff Counsel Relationship Specialty Start Date End Date Bhavik Garcia MD [address] [place] [address] PCP - General Palliative Care 08/04/22
--- OUTSIDE RECORDS SUMMARY | 2025-07-05 13:11 | XMS_ITS | Clinical Summary ---
Author Organization [address] Address [address] [place] [phone] Phone Care Team Providers Care Tooling Engineering Tech Name Role Phone Nicholas Gann MD Primary Care Provider Allergies Active Allergy Reactions Criticality Noted Date Comments Ibuprofen Dizziness 10/20/2024 Hydrocodone-Acetaminophen Dizziness 10/20/2024 Medications methocarbamoL (ROBAXIN) 750 mg tablet Take 1 tablet (750 mg total) by mouth 4 (four) times a day for 10 days. 40 each 10/20/2024 Active Social History Tobacco Use Types Packs/Day Years Used Date Smoking Tobacco: Never Assessed Sex and Gender Information Value Date Recorded Sex Assigned at Male 10/20/2024 3:34 PM EST Legal Sex Male 7:20 AM EST Gender Identity Male 10/20/2024 3:34 PM EST Sexual Orientation Not on file Last Filed Vital Signs Vital Sign Reading Time Taken Comments Blood Pressure 116/82 10/20/2024 2:59 PM EST Pulse 82 10/20/2024 2:59 PM EST Temperature 36.9 C (98.4 F) 10/20/2024 2:59 PM EST Respiratory Rate 18 10/20/2024 2:59 PM EST Oxygen Saturation 98% 10/20/2024 2:59 PM EST Inhaled Oxygen Concentration - - Weight - - Height - - Body Mass Index - - Plan of Treatment Health Maintenance Due Date Last Done Comments Hepatitis B Vaccines (1 of 3 - 19+ 3-dose series) 01/19/1991 Pneumococcal Vaccine: 50+ Years (1 of 1 - PCV) 01/19/2022 Zoster Vaccines (1 of 2) 01/19/2022 Cholesterol Screening (Lipid Panel) 08/23/2024 Colorectal Cancer Screening: Colonoscopy 08/23/2024 HIV Screening 08/23/2024 Hepatitis C Screening 08/23/2024 Social Influencers of Health Screening 08/23/2024 Depression Screening 10/04/2024 COVID-19 Vaccine (3 - 2024-2 6 season) 2025 04/13/2021, 02/17/2021 Influenza Vaccine (#1) 2025 09/01/2021 DTaP,Tdap,and Td Vaccines (2 - Td or Tdap) 03/23/2033 03/23/2023 HIB Vaccines Aged Out No longer eligi ble based on patient's age to complete this topic HPV Vaccines Aged Out No longer eligi ble based on patient's age to complete this topic Hepatitis A Vaccines Aged Out No long er eligible based on patient's age to complete this topic IPV Vaccines Aged Out No longer eligi ble based on patient's age to complete this topic MMR Vaccines Aged Out No longer eligi ble based on patient's age to complete this topic Meningococcal ACWY Vaccine Aged Out N o longer eligible based on patient's age to complete this topic Meningococcal B Vaccine Aged Out No l onger eligible based on patient's age to complete this topic RSV Immunization Patients Under 20 months Aged Out No longer eligible b ased on patient's age to complete this topic Varicella Vaccines Aged Out No longer eligible based on patient's age to complete this topic Insurance [facility] [employer] Care Teams Tooling Engineering Tech Relationship Specialty Start Date End Date Nicholas Gann MD [address] [place] [address] Dr Dominick MA PCP - General Family Medicine 10/20/24
--- OUTSIDE RECORDS SUMMARY | 2025-07-05 13:11 | XMS_ITS | Encounter Summary ---
Author Organization [facility] Address [address] [place] [address] Care Team Providers Care Fleet Administrative Assistant Name Role Phone Nicholas Gann MD Primary Care Provider Encounter Details Date Type Department Care Team (Late st Contact Info) Description 08/23/2024 Lab Requisition [facility] - Main Lab [address] [place] [address] Gómez Pires DMD [address] [place] [address] Benign neoplasm of tongue Social History Tobacco Use Types Packs/Day Years Used Date Smoking Tobacco: Never Assessed Sex and Gender Information Value Date Recorded Sex Assigned at Male 10/20/2024 3:34 PM EST Legal Sex Male 7:20 AM EST Gender Identity Male 10/20/2024 3:34 PM EST Sexual Orientation Not on file documented as of this encounter Plan of Treatment Not on file documented as of this encounter Procedures Procedure Name Priority Date/Time Associated Diagnosis Comments TISSUE EXAM Routine 08/22/2024 Benign neoplasm of tongue documented in this encounter Results * Tissue Exam (08/22/2024) Final Diagnosis Mass, tongue, excision: 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 Squamous mucosa with mild reactive changes. 08/24/2024 5:11 PM EST [facility] ([facility] Comment Healthcare Account Manager slide(s) from this case have been presented at Anatomic Pathology Intradepartmental Review Conference on 08/24/24. 08/24/2024 5:11 PM EST [facility] Clinical Information 1.5 cm mass tip of tongue, firm nodule. 08/24/2024 5:11 PM [facility] Gross Description A. Tongue, tip: Labeled with the patient's name and information . Received in formalin is a rubbery, white, 1.4 cm polypoid portion of epithelium which is inked blue at the base and quadrisected. The cut surfaces are diffusely fibrotic. The specimen is submitted in entirety in one cassette, four pieces. TS 08/24/2024 5:11 PM [facility] Disclaimer Unless otherwise specified, all tissue is 10% NB formalin fixed and paraffin embedded. 08/24/2024 5:11 PM [facility] Tissue Tongue structure / Unknown 08/22/2024 08/23/2024 7:27 AM EST us Gómez Pires DMD LAB PATHOLOGY ORDERABLES Inez l Result [facility] [address] [place] [address], documented in this encounter Visit Diagnoses Diagnosis Benign neoplasm of tongue documented in this encounter Care Teams Fleet Administrative Assistant Relationship Specialty Start Date End Date Nicholas Gann MD [address] [place] [address] Dr Dominick [place] PCP - General Family Medicine 10/20/24 documented as of this encounter
--- OUTSIDE RECORDS SUMMARY | 2025-07-05 13:11 | XMS_ITS | Clinical Summary ---
Author Organization [facility] Address [address] [address] Phone Care Team Providers Care Plumbing Hardware Assembler Name Role Phone Nicholas Gann MD Primary Care Provider Allergies Active Allergy Reactions Criticality Noted Date Comments Prednisolone 10/09/2022 Hydrocodone-Acetaminophen 10/09/2022 Medications naproxen (NAPROSYN) 500 MG tablet Take 1 tablet (500 mg total) by mouth 2 (two) times a day for 3 days. Then twice daily as needed for pain, inflammation 20 tablet 3 Active methocarbamoL (ROBAXIN) 500 MG tablet Take 1 tablet (500 mg total) by mouth 3 (three) times a day as needed. 12 tablet 3 Active Active Problems No known active problems Social History Tobacco Use Types Packs/Day Years Used Date Smoking Tobacco: Every Day Cigarettes Smokeless Tobacco: Never Tobacco Cessation:Ready to Q uit: Not Asked; Counseling Given: Not Answered Education Answer Date Recorded Are you interested [...] on file Sexual Orientation Not on file Last Filed Vital Signs Vital Sign Reading Time Taken Comments Blood Pressure 127/89 10/22/2022 11:02 AM EST Pulse 78 10/22/2022 11:02 AM EST Temperature 36.7 C (98.1 F) 10/22/2022 11:02 AM EST Respiratory Rate 18 10/22/2022 11:02 AM EST Oxygen Saturation 98% 10/22/2022 11:02 AM EST Inhaled Oxygen Concentration - - Weight 81.6 kg (180 lb) 10/16/2022 8:22 AM EST Height 182.9 cm (6') 10/16/2022 8:22 AM EST Body Mass Index 24.41 10/16/2022 8:22 AM EST Plan of Treatment Health Maintenance Due Date Last Done Comments Adult Td,Tdap Booster 1972 LIPID PANEL 1972 DEPRESSION SCREENING 1984 SMOKING Hx and SMOKELESS TOB ACCO SCREENING 01/19/1985 HEPATITIS C SCREENING 01/19/1990 HIV ONE-TIME SCREENING (18-6 5 YEARS) 01/19/1990 PNEUMOCOCCAL VACCINES (50+ y ears) (1 of 2 - PCV) 01/19/1991 COLOGUARD 01/19/2017 COLONOSCOPY 01/19/2017 COLORECTAL CANCER SCREENING 01/19/2017 FIT TEST 01/19/2017 FOBT 01/19/2017 SIGMOIDOSCOPY 01/19/2017 VIRTUAL COLONOSCOPY 01/19/2017 ZOSTER VACCINES (1 of 2) 01/19/2022 INFLUENZA VACCINE (#1) 2025 08/04/2022 COVID-19 VACCINE (1 - 2023-2 5 season) 2025 HEPATITIS A VACCINES Aged Out No long er eligible based on patient's age to complete this topic HIB VACCINES Aged Out No longer eligi ble based on patient's age to complete this topic MENINGOCOCCAL VACCINES (ACWY) Aged Out No longer eligible based on patient's age to complete this topic MENINGOCOCCAL VACCINES (B) Aged Out N o longer eligible based on patient's age to complete this topic Medical Devices Not on file Insurance [employer] PPO [facility] [place] PPO [facility] PPO [facility] Care Teams Plumbing Hardware Assembler Relationship Specialty Start Date End Date Nicholas Gann MD [address] [place] [address] PCP - General Family Medicine 10/09/22 Additional Source Comments The information contained in this document represents components of the legal health record. It is not the complete legal health record.[facility]
== END 2025-07-05 11:53 | disposition home or self-care (01) ==
PROVIDERS: PCP Family Medicine; Visit Provider Physician Assistant Medical
DX: R21 Rash and other nonspecific skin eruption (principal)

== ENCOUNTER 2025-07-27 13:55 | Outpatient (AMB) | payer OTHER, SELFPAY ==
--- OUTSIDE RECORDS SUMMARY | 2022-10-09 16:55 | XMS_ITS | Encounter Summary ---
Author Organization [facility] Address [address] [place] [phone] Phone Care Team Providers Care Gutter Hanger Name Role Phone Nicholas Gann MD Primary Care Provider Encounter Details Date Type Department Care Team (Late st Contact Info) Description 10/09/2022 3:55 PM EST Hospital Encounter [facility] [address] [place] [phone] Zandra Bruno FNP [address] [place] [phone] [email or web address] Social History Tobacco Use Types Packs/Day Years [...] the rightupper quadrant. IMPRESSION: No displaced fracture. aZndra Bruno MACHINE JOINT CUTTER IMG XR SPINE Final Resul t documented in this encounter Visit Diagnoses Not on filedocumented in this encounter Care Teams Gutter Hanger Relationship Specialty Start Date End Date Nicholas Gann MD [address] [place] [address] PCP - General Family Medicine 10/09/22 documented as of this encounter Additional Source Comments The information contained in this document represents components of the legal health record. It is not the complete legal health record.[facility]
[2025-07-27 13:55] VITALS: BP 126/80; PULSE 76; TEMP 36.6; O2SAT 98; BMI 26.9
--- NOTE | 2025-07-27 13:55 | AM.OFFWIN_ITS ---
Intake Vital Signs 07/27/25 13:55 Height 6 ft Weight 198 lb BMI 26.9 BP 126/80 Blood Pressure Location Lt brachial Position Sitting Pulse 76 Pulse Source Pulse Oximeter Temp 97.8 F Temp Source Oral Pulse Oximetry (%) 98 Oxygen Delivery Method Room Air Intake Visit Reasons: EP Back pain Intake Note: EP complains of a chronic back pain for 20 years. Since today morning the pain radiated to his right leg and restricted his walking. As per the patient it is seasonal. No fall history was provided. Patient Tobacco Use Status: Current everyday Tobacco user Allergies ibuprofen Allergy (Unknown, Verified 07/27/25 14:05) Extreme nausea acetaminophen (From Vicodin) Adverse Reaction (Mild, Verified 07/27/25 14:05) nausea hydrocodone (From Vicodin) Adverse Reaction (Mild, Verified 07/27/25 14:05) nausea Medication List - Last Reconciled 07/27/25 by Mayte León MD No Known Home Meds Do you need a note to return to daycare/school/sports/work: Yes HPI HPI Comments History of Present Illness Details Patient was informed and verbally consented to the use of an ambient scribe for clinic note documentation during the visit. History of Present Illness The patient is a 55-year-old male presenting with exacerbated low back pain radiating down the right leg. Chronic Low Back Pain: - The patient has experienced ongoing ba ck problems for an extended period, with initial onset dating back to when he was 27 years old. - Pain episodes typically recur every 8 to 10 months, often exacerbated by seasonal changes. - Today?s episode reported as back pain but also a twitching sensation in the right buttock. - The pain radiates down into the right foot - Walking is notably painful. - Denies saddle anesthesia or urinary/st ool dysfunction Review of Systems - Musculoskeletal: Reports chronic low b ack pain, report of twitching in the right buttock. - Neurological: Reports shooting pain an d numbness down right leg. No saddle anesthesia - Genitourinary: Denies any bowel or uri nary dysfunction - General: Denies fevers or chills Physical Exam General Appearance: Normal appearance, well developed. No acute distress Head: Normocephalic, atraumatic Pulmonary: No respiratory distress. Speaking in full sentences Musculoskeletal: No TTP over spine, +TTP overlying right SI joint, neg straight leg test, symmetric 5/5 strength for LE, sensation intact, normal gait Mental Status: Alert and Oriented x 3 Psychiatric: Normal mood. Normal affect. [facility] Medical History Sciatic nerve pain Social History (Updated 05/12/24 @ 10:01 by Ashley Padron) Housing: House Alcohol intake: current Patient Tobacco Use Status: Current everyday Tobacco user e-Cigarette/Vaping Use: Never Used Second Hand Smoke Exposure: No Substance Use Type: Marijuana service: No Current occupational status: employed Current occupation: [employer] Current occupational exposures/hazards: No Cognitive needs: No Hearing needs: No Vision needs: No Physical Exam Vital Signs: Last Vital Signs Temp 97.8 F 07/27/25 13:55 Pulse 76 07/27/25 13:55 BP 126/80 07/27/25 13:55 Pulse Ox 98 07/27/25 13:55 Oxygen Delivery Method Room Air 07/27/25 13:55 BMI result Body Mass Index 26.9 Assessment & Plan Assessment & Plan (1) Right-sided low back pain with right-sided sciatica: Code(s): M54.41 - Lumbago with sciatica, right side Qualifiers: Chronicity: acute Qualified Code(s): M54.41 - Lumbago with sciatica, right side Plan - Chronic low back pain has been persistent for years with episodic exacerbations. - Current symptoms appear consistent with sciatica - Advised naproxen every 12 hours with food - Recommended Flexeril at bedtime as needed and advised no operating any mot orized vehicles due to potential drowsiness - Heat on and off Medications: New cyclobenzaprine 10 mg PO BEDTIME PRN 10 tabs 0RF muscle spasm Coding Level of Care Code Est Pt Level 3 (96997) Diagnoses Acute right-sided low back pain with right-sided sciatica M54.41 Chronicity: acute
--- OUTSIDE RECORDS SUMMARY | 2025-07-27 15:55 | XMS_ITS | Clinical Summary ---
Author Organization [address] Address [address] [place] [phone] Phone Care Team Providers Care Cardiopulmonary Technologist Name Role Phone Nicholas Gann MD Primary Care Provider [phone] Allergies Active Allergy Reactions Criticality Noted Date [...] Health Maintenance Due Date Last Done Comments Colorectal Cancer Screening: Colonoscopy 1972 Hepatitis B Vaccines (1 of 3 - 19+ 3-dose series) 01/19/1991 Pneumococcal Vaccine: 50+ Years (1 of 1 - PCV) 01/19/2022 Zoster Vaccines (1 of 2) 01/19/2022 Cholesterol Screening (Lipid Panel) 08/23/2024 HIV Screening 08/23/2024 Hepatitis C Screening 08/23/2024 Social Influencers of Health Screening 08/23/2024 Depression Screening 10/04/2024 COVID-19 Vaccine (3 - 2024-2 6 season) 2025 04/13/2021, 02/17/2021 Influenza Vaccine (#1) 2025 09/01/2021 DTaP,Tdap,and Td Vaccines (2 - Td or Tdap) 03/23/2033 03/23/2023 RSV Immunization Adult Patients (1 - 1-dose 75+ series) 01/19/2047 HIB Vaccines Aged Out No longer eligi [...] patient's age to complete this topic Insurance [facility] [employer] GENER[employer] Care Teams Cardiopulmonary Technologist Relationship Specialty Start Date End Date Nicholas Gann MD [address] [place] [address] Dr Dominick [place] PCP - General Family Medicine 10/20/24
--- OUTSIDE RECORDS SUMMARY | 2025-07-27 15:55 | XMS_ITS | Clinical Summary ---
Author Organization [facility] Address [address] [address] Phone Care Team Providers Care Guest Services Assistant Name Role Phone Nicholas Gann MD [...] (#1) 2025 08/04/2022 COVID-19 VACCINE (1 - 2024-2 6 season) 2025 RSV VACCINE (1 - 1-dose 75+ series) 01/19/2047 HEPATITIS A VACCINES Aged Out No long [...] topic Medical Devices Not on file Insurance Event [employer] [facility] [place] [employer] [place] [employer] PPO UMR [facility] INS[facility] Care Teams Guest Services Assistant Relationship Specialty Start Date End Date Nicholas Gann MD [address] [place] [address] PCP - General Family Medicine 10/09/22 Additional Source Comments The information contained in this document represents components of the legal health record. It is not the complete legal health record.[facility]
--- OUTSIDE RECORDS SUMMARY | 2025-07-27 15:55 | XMS_ITS | Encounter Summary ---
Author Organization [facility] Address [address] [place] [address] Care Team Providers Care Control Systems Eng Name Role Phone Nicholas Gann MD Primary Care Provider Encounter Details Date Type Department Care Team (Late st Contact Info) Description 08/23/2024 Lab Requisition [facility] - Main Lab [address] [place] [address] Gómez Pires DMD [address] [place] [address] Benign neoplasm of tongue Social History Tobacco [...] mild reactive changes. 08/24/2024 5:11 PM EST [facility] Comment Color Paste Mixing Supervisor slide(s) from this case have been presented at Anatomic Pathology Intradepartmental Review Conference on 08/24/24. 08/24/2024 5:11 PM EST [facility] Clinical Information 1.5 cm mass tip of tongue, firm nodule. 08/24/2024 5:11 PM [facility] Gross Description A. Tongue, tip: Labeled with the patient's name and information . Received in formalin is a rubbery, white, 1.4 cm polypoid portion of epithelium which is inked blue at the base and quadrisected. The cut surfaces are diffusely fibrotic. The specimen is submitted in entirety in one cassette, four pieces. TS 08/24/2024 5:11 PM [facility] Disclaimer Unless otherwise specified, all tissue is 10% NB formalin fixed and paraffin embedded. 08/24/2024 5:11 PM [facility] Tissue Tongue structure / Unknown 08/22/2024 08/23/2024 7:27 AM EST us Gómez Pires DMD LAB PATHOLOGY ORDERABLES Inez l Result [facility] [address] [place] [address], documented in this encounter Visit Diagnoses Diagnosis Benign neoplasm of tongue documented in this encounter Care Teams Control Systems Eng Relationship Specialty Start Date End Date Nicholas Gann MD [address] [place] [address] Dr Dominick [place] PCP - General Family Medicine 10/20/24 documented as of this encounter
--- OUTSIDE RECORDS SUMMARY | 2025-07-27 15:55 | XMS_ITS | Clinical Summary ---
Author Organization [facility] Address [address] [place] [address] Care Team Providers Care Director Part Name Role Phone Bhavik Garcia MD Primary Care Provider [phone] Immunizations Immunization Administration Dates Next Due Influenza [...] Vaccine (3 - 2024- season) 06/04/202512/2021, 11/05/2021 RSV Vaccine 50 years and old er and Patients (1 - 1-dose 75+ series) 01/19/2047 Insurance [employer] PPO Care Teams Director Part Relationship Specialty Start Date End Date Bhavik Garcia MD [address] [address] PCP - General Palliative Care 08/04/22
== END 2025-07-27 14:43 | disposition home or self-care (01) ==
PROVIDERS: PCP Family Medicine; Visit Provider Family Medicine
DX: M54.41 Lumbago with sciatica, right side (principal)
CPT/HCPCS: 99213